=== PATIENT | female | born 1940 | race Caucasian/White ===

== ENCOUNTER 2016-12-12 17:00 | Emergency (ER) | payer OTHER ==
[2016-12-12] MEDS ORDERED: ZOFRAN ODT PO ONE (18:50)
[2016-12-12] MEDS ORDERED: NORCO-5 PO ONE (18:50)
--- NOTE | 2016-12-12 18:55 | PROVIDER DOCUMENTATION ---
HPI-Musculoskeletal Pain/Inj - GENERAL Chief Complaint: Fall Stated Complaint: FALL/HIP INJURY Time Seen by Provider: 12/12/16 17:59 Source: patient, family - HX OF PRESENT ILLNESS-MUSKULOSKELTAL Nature of Presenting Problem: This pt presents today c complaints of left hip and posterior thigh pain after tripping earlier today. She denies any head injury or neck pain. She is ambulating but c discomfort. No loss of motor function or sensation. No obvious injury or deformity. Quality of Pain: reports: aching Severity in ED: mild Onset/Duration: 4-6 hours ago Timing: still present Modifying Factors: improves with: movement, palpation Any recent injury?: Yes Locality of Occurance: Home Similar Symptoms Previously?: No Recently seen or treated by another doctor?: No Review of Systems - Adult - REVIEW OF SYSTEMS - ADULT Constitutional: reports: no symptoms reported. denies: chills, fever Eyes: reports: no symptoms reported. denies: discharge, dry eyes Ears, Nose, Mouth & Throat: reports: no symptoms reported. denies: ear discharge, ear pain Cardiovascular: reports: no symptoms reported. denies: chest pain, edema Respiratory: reports: no symptoms reported. denies: chronic cough, cough Gastrointestinal: reports: no symptoms reported. denies: abdominal pain, hematemesis Genitourinary: reports: no symptoms reported. denies: dysuria, discharge Musculoskeletal: reports: joint pain, muscle aches. denies: bone pain, back pain, joint swelling, neck pain Integumentary: reports: no symptoms reported. denies: hives, hair loss Neurological: reports: no symptoms reported. denies: ataxia, dizziness/vertigo Psychiatric: reports: no symptoms reported. denies: anxiety, anti-depressant use Endocrine: reports: no symptoms reported Hematologic/Lymphatic: reports: no symptoms reported Allergic/Immunologic: reports: no symptoms reported All Other Systems: Reviewed and Negative Past History - Adult - PAST MEDICAL HISTORY-ADULT Review of Records: reports: Old Records Reviewed, Nursing Assessment Review, Medications Reviewed, Social history reviewed & non-contributory. Major Childhood Illnesses: reports: denies history Cardiovascular: reports: denies history Respiratory: reports: denies history Gastrointestinal: reports: denies history Obstetrical/Gynecological: reports: denies history Genitourinary: reports: denies history Musculoskeletal: reports: denies history Neurological: reports: denies history Endocrine/Immune: reports: denies history Other Conditions: reports: denies history Physical Exam-Injury Related - Physical Exam-Injury Related Initial Vital Signs Reviewed: Yes General Appearance: appears well, alert, no apparent distress Eyes: PERRL/EOMI, pink conjunctivae Head, Ears, Nose, Mouth & Throat: normocephalic/atraumatic, moist mucous membranes, normal ENT inspection Neck: non-tender, full range of motion, supple, normal inspection Respiratory: chest non-tender, lungs clear, normal breath sounds, no pleuratic chest pain, no respiratory distress, no accessory muscle use Cardiovascular: normal peripheral pulses, regular rate, rhythm Peripheral Pulses: dorsalis-pedis (R): 2+, dorsalis-pedis (L): 2+ Abdominal Exam: normal bowel sounds, non tender, soft Back Exam: normal inspection, no CVA tenderness, no vertebral tenderness Extremity: normal range of motion, normal inspection, pelvis stable, tenderness (mild, posterior left thigh). negative: deformity, pulse deficit, pedal edema, swelling Integumentary: normal color, warm/dry, blanching Neurologic: grossly normal, no motor/sensory deficits. negative: facial droop, focal weakness, motor weakness, sensory deficit Progress - PLAN OF CARE/RESULTS Progress/Plan/Lab Results: Orders Category Date Time Status XRAY PELVIS W/HIP 2-3VW LT [RAD] Stat Exams 12/12/16 17:45 Taken Hydrocodone/APAP 5 mg/325 mg [[place]-5] Med 12/12/16 18:50 Discontinued 1 each PO NOW ONE Ondansetron Odt [Zofran Odt] Med 12/12/16 18:50 Discontinued 4 mg PO NOW ONE Vital Signs Temp Pulse Resp BP Pulse Ox 12/12/16 17:28 98 F 77 18 179/81 98 No Known Allergies Allergy (Verified 12/12/16 17:33) Omeprazole [Prilosec] 20 mg PO DAILY@0700 #20 capsule 12/12/16 - XRAY 1 XRAY: Left XRAY Study: Pelvis, Hip XRAY Interpretation: arthritis; otherwise NAD Departure - Departure Time of Disposition Order: 18:53 DIAGNOSIS: Hip strain Qualifiers: Encounter type: initial encounter Laterality: left Qualified Code(s): S76.012A - Strain of muscle, fascia and tendon of left hip, initial encounter Disposition: HOME 01 Certified Medical Emergency: Urgent Condition: Good Additional Instructions: Take medication as prescribed. Rest, elevate and ice leg. Follow up with your primary care provider or orthopedist. ED Follow Up Instructions: You have been treated by a care provider in the Emergency Department. These instructions are being provided to you so you can have an understanding of how to care for yourself upon discharge. Upon discharge from the Emergency Department, you are responsible for making arrangements for follow-up care by a physician of your choice. Take all prescribed medications as directed. Return to the Emergency Department immediately for any new or worsening symptoms. You may call the Physician Referral phone number at [phone] to obtain a list of Physicians who are taking new patients. Prescriptions: Cyclobenzaprine [Flexeril] 10 mg PO TID #20 tablet Diclofenac Na D.r. [Voltaren] 50 mg PO BID #30 tab Referrals: Miguel A Rodriguez MD [Primary Care Provider] - Jessi Bernard MD [STAFF PHYSICIAN] - Attestation - Physician/ ALIVIA Attestation Patient care was provided by Advanced Practice Provider:: Yes Advanced Practice Provider:: Shane Ashraf Advanced Practice Provider documentation review:: The Mid-level provider documentation, treatment plan and medical decision making was reviewed by the physician who agrees with all treatment and medical decision making by the MLP.
[2016-12-12 19:20] VITALS: BP 161/84
--- NOTE | 2016-12-13 06:31 | Diag Imaging Result Document ---
PROCEDURE NAME: XRAY PELVIS W/HIP 2-3VW LT - 12/12/2016 PELVIS AND LEFT HIP, THREE VIEWS: FINDINGS: No fracture. No dislocation. IMPRESSION: No acute bony injury.
== END 2016-12-12 19:19 | disposition home or self-care (01) ==
LOC: P.ED 17:00
DX: S76.012A Strain of muscle, fascia and tendon of left hip, initial encounter (principal); M25.552 Pain in left hip; M79.652 Pain in left thigh; M79.1 Myalgia; W01.0XXA Fall on same level from slipping, tripping and stumbling without subsequent striking against object, initial encounter